=== PATIENT | female | born 1990 | race Caucasian/White ===

== ENCOUNTER 2020-04-17 17:15 | Emergency (ER) | payer SELFPAY ==
[2020-04-17] MEDS ORDERED: Cephalexin 500 MG Cap PO ONE (17:16)
--- NOTE | 2020-04-17 17:22 | EDM.PDOC ---
ED HPI GENERAL MEDICAL PROBLEM - General Chief Complaint: Laceration Stated Complaint: laceration Time Seen by Provider: 04/17/20 17:15 Source of Information: Reports: Patient History Limitations: Reports: No Limitations - History of Present Illness INITIAL COMMENTS - FREE TEXT/NARRATIVE: Patient to the emergency department where she advised around midnight or so last night she cut her right hand fifth digit, lateral aspect on the medial side on a 10 roof that was in a garage. The patient advises that her tetanus shot is up-to-date, bleeding is controlled no numbness or tingling no other symptoms. Onset: Today Duration: Hour(s): (10 hours ago) Location: Reports: Upper Extremity, Right Quality: Reports: Ache Severity: Mild Improves with: Reports: None Worsens with: Reports: None Associated Symptoms: Reports: No Other Symptoms Treatments PIECE MAKER: Reports: Other (see below) (none) Right Finger-Little Pain Score (Numeric/FACES): 5 - Related Data Allergies Allergy/AdvReac Type Severity Reaction Status Date / Time egg Allergy Anaphylactic Verified 04/17/20 17:16 Shock milk Allergy Airway Verified 04/17/20 17:16 Tightness wheat Allergy Airway Verified 04/17/20 17:16 Tightness Home Meds: Home Meds ARIPiprazole [Abilify] 5 mg PO DAILY 04/17/20 [History] cephALEXin [Keflex] 500 mg PO Q8H 7 Days #21 cap 04/17/20 [Rx] Past Medical History Psychiatric History: Reports: Bipolar, Depression - Past Surgical History Head Surgeries/Procedures: Reports: None Social & Family History - Family History Cardiac: Reports: Hypertension - Living Situation & Occupation Living situation: Reports: Single Occupation: Employed ED ROS GENERAL - Review of Systems Review Of Systems: See Below Constitutional: Reports: No Symptoms. Denies: Fever Respiratory: Reports: No Symptoms Cardiovascular: Reports: No Symptoms GI/Abdominal: Reports: No Symptoms. Denies: Nausea, Vomiting Musculoskeletal: Denies: Neck Pain, Back Pain Skin: Reports: Wound (3.5 cm laceration as described above) Neurological: Reports: No Symptoms. Denies: Numbness, Tingling Psychiatric: Reports: No Symptoms ED EXAM, SKIN/RASH Exam: See Below Exam Limited By: No Limitations General Appearance: Alert, WD/WN, No Apparent Distress Head: Atraumatic, Normocephalic Neck: Normal Inspection, Supple, Non-Tender, Full Range of Motion Respiratory/Chest: No Respiratory Distress, Lungs Clear, Normal Breath Sounds, Chest Non-Tender Cardiovascular: Normal Peripheral Pulses, Regular Rate, Rhythm, No Murmur Peripheral Pulses: 2+: Radial (R) Back Exam: Normal Inspection, Full Range of Motion Extremities: Normal Range of Motion, Normal Capillary Refill, Other (Laceration to right fifth digit as described above) Neurological: Alert, Oriented, Normal Cognition, Normal Gait, No Motor/Sensory Deficits Psychiatric: Normal Affect, Normal Mood Skin: Warm, Dry, Normal Color. No: Intact Course - Vital Signs Text/Narrative:: Patient was evaluated in the emergency department, the patient does have a laceration that is approximately 10 hours old. I did advise her typically this would not be sutured however due to the location of the laceration as well as her occupation, the patient will need to have a few sutures loosely placed for best outcomes. I did advise her that this does increase her risk of infection and she will be put on an antibiotic, should be given Keflex 500 mg 3 times a day for 7 days she will also be advised to keep the wound clean and dry and leave open to air as much as possible. She is to follow-up in 3 to 4 days for reevaluation and sutures can probably come out and 10 days as this is in a finger joint area which will generally need to be in for a longer period of time. The patient agrees with all this. Last Recorded V/S: Last Vital Signs Temp 36.2 C 04/17/20 17:18 Pulse 106 H 04/17/20 17:18 Resp 16 04/17/20 17:18 BP 137/87 04/17/20 17:18 Pulse Ox 100 04/17/20 17:18 - Orders/Labs/Meds Meds: Medications Discontinued Medications Generic Name Dose Route Start Last Admin Trade Name Williamq PRN Reason Stop Dose Admin Cephalexin 1 packet 04/17/20 17:51 Take Home: Cephalexin 500 Mg, 4 Cap Pack PO 04/17/20 17:52 ONETIME ONE Lidocaine HCl 5 ml 04/17/20 17:18 Xylocaine-Mpf 1% INJECT 04/17/20 17:19 ONETIME ONE Departure - Departure Time of Disposition: 17:52 Disposition: Home, Self-Care 01 Condition: Good Clinical Impression: Laceration of right little finger w/o foreign body w/o damage to nail - Discharge Information *PRESCRIPTION DRUG MONITORING PROGRAM REVIEWED*: Not Applicable *COPY OF PRESCRIPTION DRUG MONITORING REPORT IN PATIENT HUGO: Not Applicable Prescriptions: cephALEXin [Keflex] 500 mg PO Q8H 7 Days #21 cap Instructions: Laceration Care, Adult, Sutures, Mikey, or Adhesive Wound Closure, [id number] Forms: ED Department Discharge Additional Instructions: Keep the wound clean and dry Keflex 500 mg 3 times a day for 7 days Follow-up with your family doctor in 3 to 4 days for reevaluation Sutures can probably come out in about 10 days Return to the emergency department sooner if worsening problems Sepsis Event Note (ED) - Focused Exam Vital Signs: Vital Signs Temp Pulse Resp BP Pulse Ox 04/17/20 17:18 36.2 C 106 H 16 137/87 100 - Problem List & Annotations (1) Laceration of right little finger w/o foreign body w/o damage to nail SNOMED Code(s): 70803524811947995, 88093598320247759 Code(s): S61.216A - LAC W/O FB OF R LITTLE FINGER W/O DAMAGE TO NAIL, INIT Status: Acute Priority: Medium Qualifiers: Encounter type: initial encounter Qualified Code(s): S61.216A - Laceration without foreign body of right little finger without damage to nail, initial encounter - Problem List Review Problem List Initiated/Reviewed/Updated: Yes - Assessment/Plan Plan: As above See nursing notes for past medical history, past surgical history past social history and family medical history,
[2020-04-17] MEDS: Take Home: Cephalexin 500 MG Cap, 4 Cap Pack PO ONE (18:08)
[2020-04-17] MEDS: Lidocaine 1% 20 ML MDV INJECT ONE (18:08)
== END 2020-04-17 18:06 | disposition home or self-care (01) ==
LOC: CC.ED 17:15
DX: S61.216A Laceration without foreign body of right little finger without damage to nail, initial encounter (principal); F31.9 Bipolar disorder, unspecified; Z91.011 Allergy to milk products; Z91.018 Allergy to other foods; Z91.012 Allergy to eggs; Z79.899 Other long term (current) drug therapy; W26.8XXA Contact with other sharp object(s), not elsewhere classified, initial encounter; Y92.59 Other trade areas as the place of occurrence of the external cause
CPT/HCPCS: 12002; 99282; A9270; J2001

== ENCOUNTER 2022-08-02 11:50 | Emergency (ER) | payer MEDICAID | END 2022-08-02 12:45 | disposition home or self-care (01) | LOC: CC.ED 11:50 | DX: Z00.8 Encounter for other general examination (principal); F17.210 Nicotine dependence, cigarettes, uncomplicated | CPT/HCPCS: 99282 ==